=== PATIENT | female | born 1995 | race Caucasian/White ===

== ENCOUNTER 2022-11-18 11:46 | Emergency (ER) | payer BC ==
[~2022-11-18] VITALS: Ht 165.1 cm; Wt 78.6 kg
[2022-11-18 11:48] VITALS: TEMP 98.9
[2022-11-18] MEDS ORDERED: FAMOTIDINE 20 MG/2 ML VIAL IVP ONE (12:15)
[2022-11-18] MEDS ORDERED: SODIUM CHLORIDE 0.9% 1,000 ML IV ONE (12:15)
[2022-11-18] MEDS ORDERED: MAG HYDROX/AL HYDROX/SIMETH 30 ML SUSP UDCUP PO ONE (12:15)
[2022-11-18] MEDS ORDERED: KETOROLAC TROMETHAMINE 30 MG/ML VIAL IVP ONE (12:15)
[2022-11-18] MEDS ORDERED: ONDANSETRON HCL 4 MG/2 ML VIAL IVP ONE (12:15)
[2022-11-18 12:22] LABS: BILIRUBIN,URINE NEGATIVE (NEGATIVE); COLOR,URINE YELLOW (YELLOW); GLUCOSE, URINE (UA) NEGATIVE (NEGATIVE); KETONES,URINE NEGATIVE (NEGATIVE); LEUKOCYTE ESTERASE ,URINE NEGATIVE (NEGATIVE); NITRATE,URINE NEGATIVE (NEGATIVE); OCCULT BLOOD,URINE LARGE (NEGATIVE); PROTEIN,URINE 30-70 mg/dL (NEGATIVE); SPECIFIC GRAVITIY, URINE 1.035 (1.003-1.030); UROBILINOGEN,URINE <=1.0 mg/dL (<=1.0)
[2022-11-18] MEDS ORDERED: IOHEXOL 350 MG/ML 100 ML VIAL ONE (12:28)
[2022-11-18] MEDS ORDERED: SODIUM CHLORIDE 0.9% 100 ML ONE (12:28)
[2022-11-18 12:36] LABS: APPEARANCE,URINE HAZY (CLEAR)
[2022-11-18 12:37] LABS: BASOPHILS % (AUTO) 0.2 % (0.0-2.0); EOSINOPHILS % (AUTO) 0.2 % (1.0-6.0); HEMATOCRIT 44.2 % (36-46); HEMOGLOBIN 14.8 g/dL (12.0-16.0); LYMPHOCYTES # (AUTO) 0.9 K/uL (1.0-4.8); MEAN CORPUSCULAR HEMOGLOBIN 30.2 pg (26.0-34.0); MEAN CORPUSCULAR HGB CONC 33.5 G/dL (31.0-37.0); MEAN CORPUSCULAR VOLUME 90 fL (80-100); MONOCYTES # (AUTO) 0.4 K/uL (0.1-1.0); MONOCYTES % (AUTO) 5.8 % (2.0-9.0); NEUTROPHILS # (AUTO) 5.5 K/uL (1.8-7.7); NEUTROPHILS % (AUTO) 80.8 % (40.0-70.0); PLATELET COUNT (AUTO) 314 K/uL (150-450); RED CELL DISTRIBUTION WIDTH 12.5 % (11.5-14.5); WHITE BLOOD COUNT (AUTO) 6.8 K/uL (4.5-11.0)
[2022-11-18 12:46] LABS: ANION GAP 13 mmol/L (8-16); CALCIUM, TOTAL 8.6 mg/dL (8.8-10.5); CARBON DIOXIDE 24 mmol/L (22-29); CHLORIDE 101 mmol/L (98-107); CREATININE 0.83 mg/dL (0.60-1.30); GLOMERULAR FILTR. RATE CALC > 60 mL/min (>60); GLUCOSE,RANDOM 124 mg/dL (70-110); POTASSIUM 3.2 mmol/L (3.5-5.1); SODIUM SERUM 138 mmol/L (136-145); UREA NITROGEN, BLOOD 12 mg/dL (7-18)
[2022-11-18 12:53] LABS: RBC,URINE >100 /HPF (0-2); SQUAMOUS EPITHELIAL CELL,UR Moderate /LPF (None Seen); WBC,URINE None Seen /HPF (0-5)
[2022-11-18 12:54] LABS: BACTERIA,URINE Moderate /HPF (None Seen)
[2022-11-18 13:03] LABS: ALANINE AMINOTRANSFERASE 13 U/L (12-78); ALBUMIN 3.3 g/dL (3.4-5.0); ALKALINE PHOSPHATASE 62 U/L (46-116); ASPARTATE AMINOTRANSFERASE 15 U/L (15-37); BILIRUBIN,TOTAL 0.5 mg/dL (0.1-1.0); HCG,QUANTITATIVE < 1 mIU/mL (0-6); LIPASE 30 U/L (16-77); TOTAL PROTEIN, SERUM 7.1 g/dL (6.4-8.2)
[2022-11-18] MEDS ORDERED: ONDA-104 PO (13:15)
[2022-11-18 14:24] VITALS: BP 131/84; PULSE 89; RESP 18
== END 2022-11-18 14:53 | disposition home or self-care (01) ==
LOC: EMS 11:47
DX: K52.9 Noninfective gastroenteritis and colitis, unspecified (principal); Z91.011 Allergy to milk products; Z91.012 Allergy to eggs; Z88.8 Allergy status to other drugs, medicaments and biological substances
CPT/HCPCS: 99285; 74177; 96374; 76700; 96375; 96361; 80053; 81001; 83690; 84702; 85025; 36415; 87086; 87186; J3490; J1885; J2405; Q9967; J7030; J7050

== ENCOUNTER 2025-02-15 20:40 | Emergency (ER) | payer BC ==
[~2025-02-15] VITALS: Ht 165.1 cm; Wt 79.5 kg
[~2025-02-15 20:40] MED LIST: ONDA-104 PO
[2025-02-15 20:45] VITALS: TEMP 98
[2025-02-15 21:15] LABS: APPEARANCE,URINE CLEAR (CLEAR); GLUCOSE, URINE (UA) NEGATIVE (NEGATIVE); LEUKOCYTE ESTERASE ,URINE NEGATIVE (NEGATIVE); NITRATE,URINE NEGATIVE (NEGATIVE); OCCULT BLOOD,URINE NEGATIVE (NEGATIVE); SPECIFIC GRAVITIY, URINE 1.036 (1.003-1.030)
[2025-02-15 21:44] LABS: PLATELET COUNT (AUTO) 361 K/uL (150-450); RED BLOOD CELL COUNT(AUTO) 5.36 MIL/uL (4.00-5.20); RED CELL DISTRIBUTION WIDTH 13.0 % (11.5-14.5); WHITE BLOOD COUNT (AUTO) 12.2 K/uL (4.5-11.0)
[2025-02-15 21:53] LABS: CALCIUM, TOTAL 9.4 mg/dL (8.8-10.5); CREATININE 0.71 mg/dL (0.60-1.30); GLOMERULAR FILTR. RATE CALC > 60 mL/min (>60); GLUCOSE,RANDOM 121 mg/dL (70-110); SODIUM SERUM 137 mmol/L (136-145); UREA NITROGEN, BLOOD 15 mg/dL (7-18)
[2025-02-15 22:03] LABS: ASPARTATE AMINOTRANSFERASE 18 U/L (15-37); HCG,QUANTITATIVE < 1 mIU/mL (0-6); TOTAL PROTEIN, SERUM 8.0 g/dL (6.4-8.2)
[2025-02-15] MEDS: KETOROLAC TROMETHAMINE 30 MG/ML VIAL IVP ONE (23:47)
[2025-02-15] MEDS: SODIUM CHLORIDE 0.9% 1,000 ML IV ONE (23:47)
[2025-02-15] MEDS: ONDANSETRON HCL 4 MG/2 ML VIAL IVP ONE (23:47)
[2025-02-16 01:11] VITALS: BP 136/87; PULSE 95; RESP 19; O2SAT 98
== END 2025-02-16 02:22 | disposition home or self-care (01) ==
LOC: EMS 20:40
DX: R10.21 Pelvic and perineal pain right side (principal); N83.11 Corpus luteum cyst of right ovary; Z91.0120 Allergy to eggs, unspecified; Z91.0110 Allergy to milk products, unspecified; Z79.899 Other long term (current) drug therapy
CPT/HCPCS: 99285; 96374; 96361; 96375; 80048; 80076; 81003; 83690; 84702; 85025; 36415; 76830; 76856; J1885; J2405; J7030